=== PATIENT | female | born 1935 | race Caucasian/White ===

== ENCOUNTER 2024-07-16 10:00 | Outpatient (CLI) | payer MEDICARE, SELFPAY | END 2024-07-16 10:01 | disposition home or self-care (01) | LOC: AMB 07-17 14:05 | PROVIDERS: Visit Provider Emergency Medicine | DX: R55 Syncope and collapse (principal) | CPT/HCPCS: A0425; A0427 ==

== ENCOUNTER 2024-08-28 09:53 | Outpatient (CLI) | payer MEDICARE, SELFPAY | END 2024-08-28 09:54 | disposition home or self-care (01) | PROVIDERS: Visit Provider Emergency Medicine | DX: R06.09 Other forms of dyspnea (principal); R41.82 Altered mental status, unspecified | CPT/HCPCS: A0425; A0427 ==